=== PATIENT | male | born 1935 | race Caucasian/White ===

== ENCOUNTER 2022-06-16 08:44 | Outpatient (CLI) | payer SELFPAY ==
[~2022-06-16 08:44] MED LIST: ATOR10TA87 PO; BIMA2.5D4; DORZ10DR18 OP; EYE DROPS; PARO20TA53 PO; [UNRECOGNIZED DRUG - CODE] PO
== END 2022-06-16 23:59 | disposition home or self-care (01) ==
LOC: VAS 08:44
DX: Z13.6 Encounter for screening for cardiovascular disorders (principal)